=== PATIENT | male | born 1955 | race Caucasian/White ===

== ENCOUNTER 2021-07-23 10:32 | Inpatient (IN) ==
[2021-07-23 09:45] LABS: Basophils % 0.6 % (0.2-1.0); Eosinophils # 0.2 # (0.0-0.70); Eosinophils % 2.5 % (0.0-10.0); Hematocrit 50.7 VOL% (42.0-52.0); Hemoglobin 16.4 GM/DL (14.0-18.0); Lymphocytes # 2.2 # (1.3-2.9); Lymphocytes % 34.7 % (20.5-45.5); Mean Corpuscular HGB Conc 32.3 GM/DL (32-36); Mean Corpuscular Volume 88.3 FL (80-94); Mean Platelet Volume 9.5 FL (7.4-10.4); Monocytes % 8.9 % (5.5-11.7); Neutrophils % 53.1 % (43.0-65.0); Platelet Count 196 T/CUMM (130-400); Red Blood Count 5.74 MC/CUMM (4.70-6.10); Red Cell Distribution Width 12.5 % (11.5-15.5); White Blood Count 6.4 T/CUMM (4.8-10.8)
[2021-07-23 10:02] LABS: CKMB % 3.8 %
[2021-07-23] MEDS ORDERED: MORPHINE 2 MG/1 ML SYRINGE IV PRN (10:36)
[2021-07-23] MEDS ORDERED: MAGNESIUM SULF RIDER 4 GM/100 ML PREMIX IV PRN (10:36)
[2021-07-23] MEDS ORDERED: MAGNESIUM SULF RIDER 2 GM/50 ML PREMIX IV PRN (10:36)
[2021-07-23] MEDS ORDERED: POTASSIUM CHLORIDE 20 MEQ TABLET PO PRN (10:36)
[2021-07-23] MEDS ORDERED: NITROGLYCERIN SL 0.4 MG TABLET SL PRN (10:45)
[2021-07-23] MEDS ORDERED: DIAZEPAM 5 MG TABLET PO ONE (11:21)
[2021-07-23] MEDS ORDERED: diphenhydrAMINE CAP 25 MG CAPSULE PO ONE (11:21)
[2021-07-23] MEDS ORDERED: HEPARIN/NACL 0.9% 2 UNITS/ML 0 UNIT/0 ML BAG IV ONE (11:38)
[2021-07-23] MEDS ORDERED: LIDOCAINE 1% 20 ML VIAL ONE ×2 (11:38→11:41)
[2021-07-23] MEDS ORDERED: HEPARIN/NACL 0.9% 2 UNITS/ML 2,000 UNIT/1,000 ML BAG IV ONE (11:41)
[2021-07-23] MEDS ORDERED: diphenhydrAMINE CAP 25 MG CAPSULE ONE (11:45)
[2021-07-23] MEDS ORDERED: DIAZEPAM 5 MG TABLET ONE (11:45)
[2021-07-23 11:46] LABS: Calcium 9.2 MG/DL (8.5-10.1); Potassium 4.3 MMOL/L (3.5-5.1)
[2021-07-23] MEDS: SODIUM CHLORIDE 0.45% 1,000 ML IV SCH ×3 (11:47→22:36)
[2021-07-23 11:48] LABS: Albumin 3.8 G/DL (3.4-5.0)
[2021-07-23 11:49] LABS: Osmolality,Calculated 279.5 MOS/KG (273-304)
[2021-07-23] MEDS ORDERED: MIDAZOLAM 2 MG/2 ML VIAL ONE ×2 (11:51→11:54)
[2021-07-23] MEDS ORDERED: HYDROmorphone 2 MG/1 ML VIAL ONE (11:51)
[2021-07-23 11:52] LABS: Bilirubin,Total 0.5 MG/DL (0.20-1.00); Total Protein 7.1 G/DL (6.4-8.2)
[2021-07-23 11:54] LABS: Risk Ratio 3.4
[2021-07-23] MEDS ORDERED: diphenhydrAMINE 50 MG/1 ML VIAL ONE (12:00)
[2021-07-23] MEDS ORDERED: ENOXAPARIN 80 MG/0.8 ML SYRINGE SUBCUT SCH (12:00)
[2021-07-23] MEDS ORDERED: BIVALIRUDIN 250 MG VIAL IV ONE (12:12)
[2021-07-23] MEDS ORDERED: TICAGRELOR 90 MG TABLET ONE (13:09)
[2021-07-23] MEDS ORDERED: ZALEPLON 5 MG CAPSULE PO PRN (14:06)
[2021-07-23] MEDS ORDERED: ONDANSETRON 4 MG/2 ML VIAL IV PRN (14:06)
[2021-07-23] MEDS ORDERED: ACETAMINOPHEN 325 MG TABLET PO PRN (14:06)
[2021-07-23] MEDS ORDERED: ROSUVASTATIN 20 MG TABLET PO SCH (21:00)
[2021-07-23] MEDS ORDERED: METOPROLOL TARTRATE 50 MG TABLET PO SCH (21:00)
[2021-07-23] MEDS ORDERED: TEMAZEPAM 7.5 MG CAPSULE PO SCH (21:00)
[2021-07-23] MEDS: TICAGRELOR 90 MG TABLET PO SCH (21:03)
[2021-07-24 05:13] LABS: Basophils % 0.6 % (0.0-0.8); Eosinophils # 0.2 10*3/uL (0.0-0.87); Eosinophils % 3.2 % (0.00-10.9); Hemoglobin 15.6 GM/DL (14.0-18.0); Immature Granulocytes % 0.2 %; Immature Granulocytes Absolute 0.01 #; Lymphocytes # 1.9 10*3/uL (1.4-4.0); Mean Corpuscular HGB Conc 32.5 GM/DL (32-36); Mean Corpuscular Volume 89.1 FL (87-102); Mean Platelet Volume 9.9 FL (9.6-12.0); Monocytes % 7.8 % (1.7-12.7); Neutrophils % 60.2 % (38.7-73.9); Platelet Count 160 T/CUMM (130-400); Red Blood Count 5.39 MC/CUMM (3.8-5.5); Red Cell Distribution Width 12.7 % (9.3-17.3); White Blood Count 6.7 T/CUMM (4-12)
[2021-07-24 05:36] LABS: Calcium 8.2 MG/DL (8.5-10.1); Osmolality,Calculated 283.1 MOS/KG (273-304); Potassium 3.9 MMOL/L (3.5-5.1)
[2021-07-24] MEDS: SODIUM CHLORIDE 0.45% 1,000 ML IV SCH (06:27)
[2021-07-24] MEDS ORDERED: PANTOPRAZOLE 40 MG TABLET PO SCH (06:30)
[2021-07-24] MEDS ORDERED: ENOXAPARIN 40 MG/0.4 ML SYRINGE SUBCUT SCH (09:00)
[2021-07-24] MEDS ORDERED: ASPIRIN 325 MG TABLET PO SCH (09:00)
[2021-07-24] MEDS ORDERED: ASPIRIN EC 81 MG TABLET PO SCH (09:00)
[2021-07-24] MEDS ORDERED: METOPROLOL SUCCINATE XL 25 MG TABLET PO SCH (09:00)
[2021-07-24] MEDS: TICAGRELOR 90 MG TABLET PO SCH (09:14)
[2021-07-24 12:16] VITALS: BP 119/72
== END 2021-07-24 16:30 | disposition home or self-care (01) | DRG 247 ==
LOC: N.TELEN 11:12
PROVIDERS: ADMIT Family Medicine; ATTEND Family Medicine
PROC: CLCCHCL (ICD-10-PCS; 2021-07-23 11:45)